=== PATIENT | male | born 1970 | race Caucasian/White ===

== ENCOUNTER 2020-04-04 21:29 | Emergency (ER) | payer BC, OTHER ==
[2020-04-04] MEDS ORDERED: Bacitracin Oint 1 GM U/D Packet TOP ONE (21:59)
--- NOTE | 2020-04-04 21:59 | EDM.PDOC ---
ED HPI GENERAL MEDICAL PROBLEM - General Chief Complaint: Laceration Stated Complaint: CUT RIGHT HAND Time Seen by Provider: 04/04/20 21:50 Source of Information: Reports: Patient History Limitations: Reports: No Limitations - History of Present Illness INITIAL COMMENTS - FREE TEXT/NARRATIVE: 49-year-old male with a laceration to his right hand. It occurred just over an hour and a half ago, cut with a sharp blade. It is in the thenar area of the right palm. It is sore to move his thumb but he has no limitations of range of motion, just a small amount of numbness in his thumb. It stop bleeding initially but then started bleeding again so he thought he should have it looked at. Onset: Sudden Associated Symptoms: Reports: Other (Slight pain and tingling into the thumb) Right Hand Pain Score (Numeric/FACES): 5 - Related Data Allergies Allergy/AdvReac Type Severity Reaction Status Date / Time No Known Allergies Allergy Verified 04/04/20 21:48 Home Meds: Home Meds NK [No Known Home Meds] 04/04/20 [History] Past Medical History - Infectious Disease History Infectious Disease History: Reports: Chicken Pox, Measles, Mumps - Past Surgical History HEENT Surgical History: Reports: Adenoidectomy, Myringotomy w Tube(s), Tonsillectomy Social & Family History - Tobacco Use Smoking Status *Q: Never Smoker - Caffeine Use Caffeine Use: Reports: Coffee, Soda - Alcohol Use Days Per Week of Alcohol Use: 1 Number of Drinks Per Day: 3 Total Drinks Per Week: 3 - Recreational Drug Use Recreational Drug Use: No ED ROS GENERAL - Review of Systems Review Of Systems: See Below Constitutional: Denies: Fever, Chills Respiratory: Denies: Shortness of Breath Cardiovascular: Denies: Chest Pain GI/Abdominal: Denies: Nausea, Vomiting Psychiatric: Reports: Anxiety ED EXAM, SKIN/RASH Exam: See Below Exam Limited By: No Limitations General Appearance: Alert, No Apparent Distress, Anxious Head: Atraumatic Respiratory/Chest: No Respiratory Distress Extremities: Other (On the right palm, over the thenar area there is a 3 cm transverse laceration with underlying subcutaneous fat protruding from the wound. He has full range of motion of his fingers and thumb) Neurological: Alert, Oriented Course - Vital Signs Last Recorded V/S: Last Vital Signs Temp 98.3 F 04/04/20 21:56 Pulse 85 04/04/20 21:56 Resp 16 04/04/20 21:56 BP 173/93 H 04/04/20 21:56 Pulse Ox 100 04/04/20 21:56 - Orders/Labs/Meds Meds: Medications Discontinued Medications Generic Name Dose Route Start Last Admin Trade Name Adelaida PRN Reason Stop Dose Admin Bacitracin 1 dose 04/04/20 21:59 04/04/20 22:06 Bacitracin Oint 1 Gm TOP 04/04/20 22:00 1 dose ONETIME ONE Administration Lidocaine HCl 5 ml 04/04/20 21:59 04/04/20 22:06 Xylocaine-Mpf 1% INJECT 04/04/20 22:00 5 ml ONETIME ONE Administration - Re-Assessments/Exams Free Text/Narrative Re-Assessment/Exam: 04/04/20 22:26 The wound was anesthetized with 1% lidocaine, cleansed thoroughly with saline and five 4-0 Ethilon sutures were used to close the wound. Pressure was applied followed by bacitracin and a pressure dressing. Stitches can be removed in 9 days. Recheck sooner if concerns of infection or not healing satisfactorily. Departure - Departure Time of Disposition: 22:41 Disposition: Home, Self-Care 01 Clinical Impression: Laceration of right hand Qualifiers: Encounter type: initial encounter Foreign body presence: without foreign body Qualified Code(s): S61.411A - Laceration without foreign body of right hand, initial encounter - Discharge Information Instructions: Laceration Care, Adult Referrals: PCP,None [Primary Care Provider] - Forms: ED Department Discharge Care Plan Goals: Keep wound covered and clean while healing, stitches can be removed in 9 days, next Friday. Increase activity as tolerated and recheck sooner if concerns of infection or not healing satisfactorily. Sepsis Event Note (ED) - Focused Exam Vital Signs: Vital Signs Temp Pulse Resp BP Pulse Ox 04/04/20 21:56 98.3 F 85 16 173/93 H 100 04/04/20 21:48 98.3 F 85 16 173/93 H 100
== END 2020-04-04 22:42 | disposition home or self-care (01) ==
LOC: JP.ED 21:29
DX: S61.411A Laceration without foreign body of right hand, initial encounter (principal); W26.8XXA Contact with other sharp object(s), not elsewhere classified, initial encounter
CPT/HCPCS: 12002; 99282; J2001